=== PATIENT | female | born 1985 | race Caucasian/White ===

== ENCOUNTER 2023-07-09 19:03 | Emergency (ER) | payer BC, OTHER ==
[~2023-07-09] VITALS: Ht 160 cm; Wt 81.6 kg
[~2023-07-09 19:03] MED LIST: CYCL10TA19 PO; IBUP-1129 PO; NORE1TAB74 PO
[2023-07-09 19:34] VITALS: BP 129/78; PULSE 89; RESP 18; TEMP 98.1; O2SAT 99
[2023-07-09 19:39] LABS: BASOPHIL % 0.2 % (0.0-0.2); EOSINOPHIL # 0.1 10^3/uL (0.0-0.2); HEMATOCRIT(ML) 45.3 % (36.0-46.0); HEMOGLOBIN 15.1 g/dL (12.0-15.0); LYMPHOCYTES # 3.03 10^3/uL1 (1.0-4.8); LYMPHOCYTES % 26.2 % (24.0-44.0); MEAN CORP HGB CONCENTRATION 33.3 g/dL (33-36.5); MEAN CORP VOLUME 83.9 fL (78-100); MONOCYTES # 0.6 10^3/uL (0.3-0.8); MONOCYTES % 5.4 % (5.0-12.0); NEUTROPHIL # 7.8 10^3/uL (1.8-7.7); PLATELET COUNT 351 10^3/uL (150-400); RED CELL DISTRIBUTION WIDTH 13.3 % (11.5-14.5); WHITE BLOOD CELL 11.6 10^3/uL (4.5-11.0)
[2023-07-09 19:40] LABS: +ADD MANUAL DIFF(NO CHRG) NO
[2023-07-09 19:43] LABS: APPEARANCE,URINE CLEAR; BILIRUBIN,URINE NEGATIVE (NEGATIVE); LEUKOCYTE ESTERASE ,URINE TRACE (NEGATIVE); NITRATE,URINE NEGATIVE (NEGATIVE); PH,URINE 6.5 (4.5-8.0); UA COLOR STRAW; UROBILINOGEN,URINE 0.2 E.U./dL (0.2)
[2023-07-09 19:56] LABS: INR 0.9; PROTHROMBIN PROTIME 9.9 SEC (9.7-11.6)
[2023-07-09 20:20] LABS: ALBUMIN(ML) 3.2 g/dL (3.4-5.0); ALBUMIN/GLOBULIN RATIO 0.727; ANION GAP 12.5; CALCIUM 9.4 mg/dL (8.4-10.5); CREATININE SERUM 0.79 mg/dL (0.59-1.40); EST GFR, NON-AA 81.9 (>/=60); POTASSIUM 4.5 mmol/L (3.6-5.2)
[2023-07-09 20:30] VITALS: BP 127/75; PULSE 76; RESP 18; TEMP 98.1; O2SAT 99
[2023-07-09 21:44] VITALS: BP 118/72; PULSE 92; RESP 18; TEMP 98.1; O2SAT 99
== END 2023-07-09 21:45 | disposition home or self-care (01) ==
LOC: ER 19:03
DX: O34.11 Maternal care for benign tumor of corpus uteri, first trimester (principal); D25.9 Leiomyoma of uterus, unspecified; Z88.0 Allergy status to penicillin; Z88.7 Allergy status to serum and vaccine; Z3A.11 11 weeks gestation of pregnancy
CPT/HCPCS: 36415; 76801; 76817; 80053; 81001; 84702; 85025; 85610; 85730; 86900; 93976; 99284